=== PATIENT | female | born 2000 | race Two or more races ===

== ENCOUNTER 2020-12-24 07:04 | Emergency (ER) | payer OTHER ==
[~2020-12-24] VITALS: Ht 152.4 cm; Wt 54.5 kg
[2020-12-24 07:10] VITALS: BP 116/64
--- NOTE | 2020-12-24 07:19 | PHYS DOC ---
Past Medical History Past Medical History: No Pertinent History Past Surgical History: No Surgical History Smoking Status: Never Smoker Alcohol Use: Occasionally General Adult EDM: Chief Complaint: RIB PAIN HPI: HPI: This is a pleasant 20-year-old female who presents emergency department with right-sided chest wall pain. It started on Sunday. It is worse when she lays on it and improves when she sits up. She denies taking any medications for it. Its sharp mild intermittent and nonradiating. She denies having diabetes hypertension hyperlipidemia. She does not smoke. She denies hemoptysis unilateral leg swelling history of DVT or PE or recent surgery or immobilization. Review of systems negative for abdominal pain vomiting fevers chills nausea vomiting. She denies unilateral leg swelling hemoptysis. All other review of systems negative. ED course: 20-year-old female presenting with right-sided chest wall pain. EKG blood work ordered. D-dimer elevated. Work-up here in the emerge department is unremarkable. CT angiogram negative for pulmonary embolism. Will discharge to follow-up with PCP in 1 to 2 days. The patient has been examined and was not found to have an emergency medical condition. The patient was then discharged home in stable condition to follow up with their primary care physician over the next 1-2 days. They were to return if their symptoms worsened or if they were concerned for any reason. They were also instructed to return to the emergency department if they were unable to get the recommended and appropriate follow-up. [id number] discharge instructions and return precautions were given. Patient's questions were answered to their satisfaction. Patient is comfortable with plan. Heart Score: Risk Factors: Risk Factors: DM, Current or recent (<one month) smoker, HTN, HLP, family history of CAD, obesity. Risk Scores: Score 0 - 3: 2.5% MACE over next 6 weeks - Discharge Home Score 4 - 6: 20.3% MACE over next 6 weeks - Admit for Clinical Observation Score 7 - 10: 72.7% MACE over next 6 weeks - Early Invasive Strategies Allergies: Allergies: Allergies Coded Allergies Type Severity Reaction Last Updated Verified No Known Drug Allergies 12/24/20 No Physical Exam: PE: Constitutional: Well developed, well nourished, no acute distress, non-toxic appearance. [] HENT: Normocephalic, atraumatic, bilateral external ears normal, oropharynx moist, no oral exudates, nose normal. [] Eyes: PERRLA, EOMI, conjunctiva normal, no discharge. [] Neck: Normal range of motion, no tenderness, supple, no stridor. [] Cardiovascular:Heart rate regular rhythm, no murmur [] Lungs & Thorax: Bilateral breath sounds clear to auscultation [] Abdomen: Bowel sounds normal, soft, no tenderness, no masses, no pulsatile masses. [] Skin: Warm, dry, no erythema, no rash. [] Back: No tenderness, no CVA tenderness. [] Extremities: No tenderness, no cyanosis, no clubbing, ROM intact, no edema. [] Neurologic: Alert and oriented X 3, normal motor function, normal sensory function, no focal deficits noted. [] Psychologic: Affect normal, judgement normal, mood normal. [] Current Patient Data: Vital Signs: Vital Signs Date Time Temp Pulse Resp B/P (MAP) Pulse Ox O2 Delivery O2 Flow Rate FiO2 12/24/20 07:10 97.7 70 16 116/64 (81) 97 Room Air 97.7 EKG: EKG: EKG shows sinus rhythm with a regular rate. ST segments congruent. Not suggestive of ACS. [] Radiology/Procedures: Radiology/Procedures: [] Course & Med Decision Making: Course & Med Decision Making Pertinent Labs and Imaging studies reviewed. (See chart for details) [] Dragon Disclaimer: Dragon Disclaimer: This electronic medical record was generated, in whole or in part, using a voice recognition dictation system. Departure Departure Impression: Primary Impression: Chest wall pain Disposition: 01 DC HOME SELF CARE/HOMELESS Condition: STABLE Patient Instructions: Chest Pain (Nonspecific) Additional Instructions: EMERGENCY DEPARTMENT GENERAL DISCHARGE INSTRUCTIONS Follow-up with your primary physician in 1 to 2 days. Return to the emergency department if you have any new or concerning findings. Thank you for coming to [facility] Emergency Department (ED) today and trusting us with you care. We trust that you had a positive experience in our Emergency Department. If you wish to speak to the department management, you may call the Director at [phone]. YOUR FOLLOW UP INSTRUCTIONS ARE FOLLOWS: 1. Do you have a private Doctor? If you do not have a private doctor, please ask for a resource list of physicians or clinics that may be able to assist you with follow up care. 2. If a lab test or culture has been done and does not come back immediately, your results will be reviewed and you will be notified if you need a change in treatment. ADDITIONAL INSTRUCTIONS AND INFORMATION: 1. Your care today has been supervised by a physician who is specially trained in emergency care. Many problems require more than one evaluation for a complete diagnosis and treatment. We recommend that you schedule your follow up appointment as recommended to ensure complete treatment of you illness or injury. If you are unable to obtain follow up care and continue to have a problem, or if your condition worsens, we recommend that you return to the ED. 2. We are not able to safely determine your condition over the phone nor are we able to give sound medical advice over the phone. For these safety reasons, if you call for medical advice we will ask you to come to the ED for further evaluation. 3. If you have any questions regarding these discharge instructions please call the ED at [phone]. SAFETY INFORMATION: In the interest of safety, wellness, and injury prevention; we encourage you to wear your sealbelt, if you smoke; quite smoking, and we encourage family to use a protective helmet for bicycling and other sporting events that present an increased risk for head injury. IF YOUR SYMPTOMS WORSEN OR NEW SYMPTOMS DEVELOP, OR YOU HAVE CONCERNS ABOUT YOUR CONDITION; OR IF YOUR CONDITION WORSENS WHILE YOU ARE WAITING FOR YOUR FOLLOW UP APPOINTMENT; EITHER CONTACT YOUR PRIMARY CARE DOCTOR, THE PHYSICIAN WHOSE NAME AND NUMBER YOU WERE GIVEN, OR RETURN TO THE ED IMMEDIATELY. This condition should be evaluated by your primary care physician and any necessary consulting services for continued management within a few days (1-2) after discharge. Return to the emergency department if you have any new or co ncerning symptoms including but not limited to fever, chills, nausea, vomiting, intractable pain, any new rashes, chest pain, shortness of breath, uncontrolled bleeding, difficulty breathing, and/or vision loss. FABIOLA DUBOIS MD Dec 24, 2020 07:19
[2020-12-24 07:47] LABS: BASO % 1 % (0-3); EOS # 0.1 x10^3/uL (0.0-0.7); EOS % 1 % (0-3); HEMATOCRIT 33.2 % (36.0-47.0); HEMOGLOBIN 10.8 g/dL (12.0-15.5); LYMPH # 1.7 x10^3/uL (1.0-4.8); LYMPH % 21 % (24-48); MEAN CORPUSCULAR HEMOGLOBIN 25 pg (25-35); MEAN CORPUSCULAR HGB CONC 33 g/dL (31-37); MEAN CORPUSCULAR VOLUME 77 fL (79-100); MONO # 0.4 x10^3/uL (0.0-1.1); MONO % 6 % (0-9); NEUT # 5.5 x10^3/uL (1.8-7.7); NEUT % 71 % (31-73); PLATELET COUNT 315 x10^3/uL (140-400); RED BLOOD COUNT 4.34 x10^6/uL (3.50-5.40); RED CELL DISTRIBUTION WIDTH 15.8 % (11.5-14.5); WHITE BLOOD COUNT 7.8 x10^3/uL (4.0-11.0)
[2020-12-24 08:05] LABS: ALBUMIN 3.7 g/dL (3.4-5.0); CALCIUM 9.3 mg/dL (8.5-10.1); CREATININE 0.7 mg/dL (0.6-1.0); DIRECT BILIRUBIN 0.1 mg/dL (0.0-0.2); GFR 104.6; POTASSIUM 3.9 mmol/L (3.5-5.1); TOTAL BILIRUBIN 0.3 mg/dL (0.2-1.0); TOTAL PROTEIN 7.7 g/dL (6.4-8.2)
--- NOTE | 2020-12-24 08:28 | RAD ---
EXAM: XR CHEST 1V INDICATION: Reason: chest pain, right rib pain since Sunday no known injury / Spl. Instructions: / H istory: . TECHNIQUE: Single view COMPARISON: None FINDINGS: The heart size is normal. The great vessels appear unremarkable. There is no hilar or mediastinal mass. The lungs are clear. There is no pleural effusion or pneumothorax. There are no significant osseous abnormalities. IMPRESSION: No active cardiopulmonary disease. Electronically signed by: Ed Warren MD (12/24/2020 8:04 AM) [id number]
[2020-12-24] MEDS ORDERED: IOHEXOL 350 MG/ML 100 ML VIAL. IV ONE (08:30)
[2020-12-24] MEDS ORDERED: CONTRAST GIVEN. MC PRN (08:30)
[2020-12-24 08:44] LABS: PREG TEST PT QUAL NEGATIVE (NEG)
--- NOTE | 2020-12-24 08:59 | RAD ---
ADDENDUM #1 Addendum: No main, lobar or segmental pulmonary embolism. Electronically signed by: KIMBERLY PERALTA MD (12/24/2020 11:06 AM) [id number] ORIGINAL REPORT Study: CT ANGIOGRAPHY OF THE CHEST History: Chest pain. Comparison: None. Technique: CT angiography of the chest performed after the administration of 85 cc Omnipaque 350 intr avenous contrast. Coronal and sagittal 3D MIP reformations were obtained. One or more of the following individualized dose reduction techniques were utilized for this examinat ion: 1. Automated exposure control 2. Adjustment of the mA and/or kV according to patient size 3. Use of iterative reconstruction technique. Findings: Pulmonary Arteries: No pulmonary embolism is identified. Main pulmonary artery caliber is within norm al limits. Heart/Systemic Vasculature: Nonaneurysmal aorta. No dissection. The visualized great vessels are werner nt. Cardiac chambers are within normal limits. Mediastinum: Thymic tissue noted. No lymphadenopathy, pericardial effusion or hiatal hernia. Lungs: No localized airspace infiltrate, pleural effusion or pneumothorax. Patent central airways. Ri ght midlung granuloma. No suspicious pulmonary nodule. Neck/Axilla/Body Wall: Unremarkable axilla and partially imaged thyroid. Upper Abdomen: Unremarkable. Bones: No acute or aggressive osseous process. Miscellaneous: None. IMPRESSION: No aortic dissection or aneurysm. Collectively no abnormality is identified throughout the chest that would explain the patient's pain. Electronically signed by: KIMBERLY PERALTA MD (12/24/2020 8:57 AM) [id number]
--- NOTE | 2020-12-24 19:24 | EKG ---
[facility] [address] [place] [address] Test Date: 2020-12-24 Test Time: 07:31:37 Pat Name: SOFYA FERRO Department: Room: Gender: F Head Cashier: : 2000 Requested By: FABIOLA DUBOIS Order Number: [id number] Reading MD: Measurements Intervals Sagle Rate: 58 P: 45 NE: 150 QRS: 65 QRSD: 70 T: 38 QT: 402 QTc: 398 Interpretive Statements SINUS RHYTHM NORMAL ECG RI6.02 No previous ECG available for comparison
== END 2020-12-24 11:23 | disposition left against medical advice (07) ==
LOC: ER 07:04
DX: R07.89 Other chest pain (principal)
CPT/HCPCS: 36415; 71045; 71275; 80048; 80076; 81025; 83690; 84484; 84703; 85025; 85379; 93005; 99285; Q9967